=== PATIENT | female | born 2005 | race Caucasian/White ===

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

== ENCOUNTER → 2023-01-13 | Outpatient (CLI) | payer OTHER, SELFPAY ==
[2023-01-16 00:07] LABS: Cortisol, Free 24Ur 144 ug/24 hr (6-42); Cortisol, Urinary Free 72 ug/L (Undefined)
== END | disposition home or self-care (01) ==
LOC: LABSPEC 09:39
PROVIDERS: Referring Provider Internal Medicine Endocrinology, Diabetes & Metabolism; Visit Provider Internal Medicine Endocrinology, Diabetes & Metabolism
DX: E27.9 Disorder of adrenal gland, unspecified (principal)
CPT/HCPCS: 81050; 82530

== ENCOUNTER → 2023-01-16 | Outpatient (CLI) | payer OTHER, SELFPAY ==
[2023-01-17 13:07] LABS: Adrenocorticotropic Hormone 16.7 pg/mL (7.2-63.3)
== END | disposition home or self-care (01) ==
LOC: LAB 12:01
PROVIDERS: Referring Provider Internal Medicine Endocrinology, Diabetes & Metabolism; Visit Provider Internal Medicine Endocrinology, Diabetes & Metabolism
DX: E27.9 Disorder of adrenal gland, unspecified (principal); E88.810 Metabolic syndrome
CPT/HCPCS: 36415; 82024; 82533

== ENCOUNTER → 2023-01-22 | Outpatient (CLI) | payer OTHER, SELFPAY | END | disposition home or self-care (01) | LOC: LAB 07:55 | PROVIDERS: Referring Provider Internal Medicine Endocrinology, Diabetes & Metabolism; Visit Provider Internal Medicine Endocrinology, Diabetes & Metabolism | DX: E88.810 Metabolic syndrome (principal); E27.9 Disorder of adrenal gland, unspecified | CPT/HCPCS: 36415; 82533 ==

== ENCOUNTER 2023-02-20 18:58 | Emergency (ER) | payer OTHER, SELFPAY ==
[2023-02-20 18:59] VITALS: BP 175/86; PULSE 108; RESP 16; TEMP 36.2; O2SAT 98; BMI 46.5
--- NOTE | 2023-02-20 19:02 | RAD_ITS ---
INDICATION: pain EXAMINATION/TECHNIQUE: X-RAY - LEFT XR Knee Complete 4 Views or More 4 VIEWS COMPARISON: No relevant prior comparison study available FINDINGS: SOFT TISSUES: No soft tissue swelling or gas. No radiopaque foreign body. BONES/JOINTS: No acute fracture or subluxation.. Normal alignment. Preservation of the joint space. Tiny tricompartmental marginal osteophytes.. No sclerotic or destructive changes observed. RAD/Knee 4 or More Views IMPRESSION: No fracture or malalignment. Tiny tricompartmental marginal osteophytes, greater than expected for patient age. Electronically Signed: Hernan Bradford MD at 19:28 EST ,
[2023-02-20 22:44] VITALS: PULSE 79; RESP 16; O2SAT 98
--- NOTE | 2023-02-27 15:21 | ED.VIS.LOWEX ---
HPI History of Present Illness Chief Complaint: Lower Extremity Injury Informant: patient Narrative Narrative: Patient presents with left knee pain. Patient has some pain in the left knee. No specific activity started this. But she does have a history of some knee problems. 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 No recent fevers chills. No notable swelling. It occasionally feels like it locks on her and is very stiff. No redness. [facility] Medical History Elevated testosterone level Home Medications medroxyprogesterone 5 mg tablet 5 mg PO DAILY #30 tabs 01/01/23 [Rx Last Taken Unknown] megestrol 40 mg tablet 40 mg PO DAILY #7 tabs 01/01/23 [Rx Last Taken Unknown] norgestimate 0.25 mg-ethinyl estradiol 35 mcg tablet (Sprintec (28)) 1 tab PO DAILY #84 tabs 01/08/23 [Rx Last Taken Unknown] naproxen 500 mg tablet (Naprosyn) 500 mg PO BID PRN pain #20 tabs 02/20/23 [Rx Last Taken Unknown] Allergy/AdvReac Type Severity Reaction Status Date / Time No Known Allergies Allergy Verified 02/20/23 18:58 Family History Grandfather CVA (cerebral vascular accident) Diabetes Liver disease Grandmother Heart disease Surgical History History of ankle surgery Social History Smoking Status: Never smoker alcohol intake: never substance use type: does not use caffeine: Yes what type of physical activity do you participate in: none seatbelt use: always do you feel safe at home: Yes additional social history: 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 She is nontoxic. HEENT overall normal. No sign of trauma. Cardiorespiratory shows easy unlabored breathing and normal saturations at 98% on room air showing no hypoxia. Extremities show that there is really no sign of effusion of the knee. It is not red it is not warm. There is no clinical indication of infection. There is some crepitance with range of motion. But I am not getting any obvious instability. Varus valgus and even a Bryant show no obvious ligamentous laxity. Although range of motion is limited at the extremes there is no sign of significant pain with passive range of motion. MDM MDM MDM Narrative Medical decision making narrative: My independent interpretation of the patient's 4 view x-ray of the knee shows some mild arthritic changes but no sign of acute fracture. No large osteochondral fragment is noted. Final reading is tiny tricompartmental marginal osteophytes greater than expected for patient age. These x-ray findings are likely consistent with her significant heavy use of her knees over the years. I think she is likely having a flare possibly from some mild early arthritis. There is no clinical indication for doing blood work, ESR or joint aspirate. No indication of infection. We will get her started on Naprosyn ice rest they will follow-up she may need further evaluations and possible MRI in the future if it keeps giving her problems or locking. This is a suspicion for meniscal injury. Radiography Diagnostic Testing: Clinical Impression(s) from Imaging Studies Knee X-Ray 02/20/23 19:02 IMPRESSION: No fracture or malalignment. Tiny tricompartmental marginal osteophytes, greater than expected for patient age. Electronically Signed: Hernan Bradford MD at 19:28 EST , Discharge Plan Triage Chief Complaint: Lower Extremity Injury ED Provider: Mickey Neves Dx/Rx/DC Orders Clinical Impression: Left knee pain Instructions: ED Knee Pain of Uncertain Cause Prescriptions: New naproxen [Naprosyn] 500 mg tablet 500 mg PO BID PRN (Reason: pain) Qty: 20 0RF No Action megestrol 40 mg tablet 40 mg PO DAILY Qty: 7 0RF medroxyprogesterone 5 mg tablet 5 mg PO DAILY Qty: 30 12RF Rx Instructions: start taking after finish megace rx norgestimate-ethinyl estradiol [Sprintec (28)] 0.25-35 mg-mcg tablet 1 tab PO DAILY Qty: 84 4RF Stand Alone Forms: ED Work / School Excuse Primary Care Provider: DONALD GEORGES Referrals: DONALD GEORGES [Other] Roberto Rosales MD [Med Staff - Active Staff] - As soon as possible Disposition Disposition: Home, Self Care Discharge Date/Time: 02/20/23 22:45
== END 2023-02-20 22:45 | disposition home or self-care (01) ==
PROVIDERS: Emergency Provider Emergency Medicine; Visit Provider Emergency Medicine
DX: M25.562 Pain in left knee (principal); M19.90 Unspecified osteoarthritis, unspecified site
CPT/HCPCS: 73564; 99282

== ENCOUNTER → 2023-03-07 | Outpatient (CLI) | payer OTHER, SELFPAY ==
[2023-03-07 14:59] LABS: Absolute Lymphocyte Count 2.28 X10^3/uL (0.83-4.51); Absolute Neutrophil Count 4.6 X10^3/uL (2.0-7.7); Basophil# 0.04 X10^3/uL; Basophil% 0.5 % (0-1); Eosinophil# 0.06 X10^3/uL; Eosinophils% 0.8 % (0-5); Hematocrit 41.6 % (37-47); Hemoglobin 13.3 g/dL (12.0-15.0); Lymphocyte # 2.28 X10^3/ul (0.83-4.51); Lymphocyte % 30.7 % (19-41); Mean Corpuscular Hgb 29.2 pg (27.0-32.0); Mean Corpuscular Volume 91.4 fL (81-99); Mean Platelet Vol. 10.3 fl (6.2-12.0); Monocyte# 0.47 X10^3/uL; Monocyte% 6.3 % (0-10); NRBC Flagged by Analyzer 0 % (0-5); Neutrophil # 4.57 X10^3/uL (2.7-7.7); Neutrophil % 61.6 % (47-70); Platelet Count 275 K/mm3 (150-450); RBC Distribution Width CV 13.2 % (11.6-14.6); RBC Distribution Width SD 44.6 fl (35.1-43.9); Red Blood Count 4.55 M/mm3 (4.2-5.4); White Blood Count 7.4 K/mm3 (4.4-11.0)
[2023-03-07 15:04] LABS: Erythrocyte Sedimentation Rate 8 mm/hr (0-30)
[2023-03-07 15:29] LABS: CRP 8.95 mg/L (0.0-3.0); Rheumatoid Factor < 10.0 IU/mL (<15); Uric Acid 4.8 mg/dL (2.6-6.0)
[2023-03-11 12:07] LABS: ANTINUCLEAR ANTIBODIES DIRECT Negative (Negative)
== END | disposition home or self-care (01) ==
LOC: LAB 13:56
PROVIDERS: Referring Provider Student in an Organized Health Care Education/Training Program; Visit Provider Student in an Organized Health Care Education/Training Program
DX: S83.8X2A Sprain of other specified parts of left knee, initial encounter (principal); X58.XXXA Exposure to other specified factors, initial encounter
CPT/HCPCS: 36415; 84550; 85025; 85652; 86038; 86140; 86431

== ENCOUNTER → 2023-04-18 | Outpatient (CLI) | payer OTHER, SELFPAY ==
[2023-04-18 13:52] LABS: AST(SGOT) 13 U/L (15-37); Alanine Aminotransfer ALT/SGPT 32 U/L (13-56); Albumin, Serum 3.8 g/dL (3.2-5.0); Alkaline Phosphatase 70 U/L (45-117); Anion Gap 1 (5-15); BUN 17 mg/dL (7-18); BUN/Creat Ratio 21.4 RATIO (10-20); Calcium,Total 9.5 mg/dL (8.5-10.1); Chloride 108 mmol/L (98-107); Creatinine, Serum 0.79 mg/dL (0.55-1.02); EST Glomerular Filtration Rate 99 mL/min (>60); Est Glom Filt Rate - Afr Amer 120 mL/min (>60); Globulin 3.8 g/dL (2.2-4.2); Glucose 95 mg/dL (74-106); Potassium 3.8 mmol/L (3.5-5.1); Protein, Total 7.6 g/dL (6.4-8.2); Sodium Level 137 mmol/L (136-145)
[2023-04-18 13:53] LABS: Insulin 30.5 mU/L (2.6-37.6); Vitamin D,25 Hydroxy 51.4 ng/mL
--- OUTSIDE RECORDS SUMMARY | 2023-04-18 16:08 | XMS RPT_ITS | CCD ---
Author Name Unknown Address [address] [place] [address] Organization [facility] Care Team Providers Care Signal Operator Technical Name Role Phone Pawa, Pratheep Unavailable Unavailable Pawa, Pratheep Unavailable Unavailable TOMER SOTO Attending Unavailable DONALD GEORGES Primary Care Unavailable Problems Active Problems Problem Classification Problem Date Documented Da te Episodic/Chronic Unclassified (1 source) Unknown / UNK(Unknown) Onset: 09-21-2017 Past or Other Problems Problem Classification Problem Date Documented Da te Episodic/Chronic Unclassified (1 source) RT EAR PAIN Onset: 09-21-2017 Results Test Name Value Interpretation Reference Range Facil ity Encounters Encounter Date Encounter Type Care Provider Facility Start: 11-25-2022 End: 11-26-2022 Emergency department patient visit TOMER SOTO [facility] Start: 09-24-2017 Patient encounter procedure Pratheep Pawa Facility:[facility] Start: 09-21-2017 Patient encounter procedure Pratheep Pawa Facility:[facility] Payers Date Payer Category Payer Self-pay [id number] 2017 Unknown [id number] 2003 Unknown [id number] [id number]. [id number] Unknown [id number] Unknown [id number] Unknown [id number] Summary Purpose Family History No Family History Records FoundNo Family History Records FoundNo Family History Records Found Advance Directives No Advanced Directives Records FoundNo Advanced Directives Records FoundNo Advanced Directives Records Found Additional Source Comments INFORMATION SOURCE (unrecogn ized section and content) DATE CREATED AUTHOR AUTHOR'S HUMA ATEDUARDO 11/15/2021 [facility] Ce nter DATE CREATED AUTHOR AUTHOR'S HUMA ATION 12/02/2022 [facility] FOR RECORDS PERTAINING TO PATIENTS WHO ARE OR HAVE BEEN ENROLLED IN A CHEMICAL DEPENDENCY/SUBSTANCEABUSE PROGRAM, SOME INFORMATION MAY BE OMITTED. This clinical summary was aggregated from multiple sources. Caution should be exercised in using it in the provision of clinical care. This summary normalizes information from multiple sources, and as a consequence, information in this document may materially change the coding, format and clinical context of patient data. In addition, data may be omitted in some cases. CLINICAL DECISIONS SHOULD BE BASED ON THE PRIMARY CLINICAL RECORDS. [employer] provides no warranty or guarantee of the accuracy or completeness of information in this document.
== END | disposition home or self-care (01) ==
LOC: LAB 12:45
PROVIDERS: Referring Provider Internal Medicine Endocrinology, Diabetes & Metabolism; Visit Provider Internal Medicine Endocrinology, Diabetes & Metabolism
DX: E88.810 Metabolic syndrome (principal); E28.2 Polycystic ovarian syndrome
CPT/HCPCS: 36415; 80053; 82306; 83525

== ENCOUNTER → 2023-04-21 | Outpatient (CLI) | payer OTHER, SELFPAY ==
--- OUTSIDE RECORDS SUMMARY | 2023-04-21 10:39 | XMS RPT_ITS | CCD ---
Author Name Unknown Address [address] [place] [address] Organization [facility] Care Team Providers Care Strategy Lead Name Role Phone Pawa, Pratheep Unavailable Unavailable [...] 11-26-2022 Emergency department patient visit TOMER SOTO [facility] Start: 09-24-2017 Patient encounter procedure Pratheep Pawa Facility:[facility] Start: 09-21-2017 Patient encounter procedure Pratheep Pawa Facility:[facility] Payers Date Payer Category Payer Self-pay [id number] 2017 Unknown [id number] 2003 Unknown [id number] [id number]. [id number] Unknown [id number] Unknown [id number] Unknown [id number] Summary Purpose Family History No Family History Records FoundNo Family History Records FoundNo Family History Records Found Advance Directives No Advanced Directives Records FoundNo Advanced Directives Records FoundNo Advanced Directives Records Found Additional Source Comments INFORMATION SOURCE (unrecogn ized section and content) DATE CREATED AUTHOR AUTHOR'S HUMA ATEDUARDO 11/15/2021 [facility] Ce nter DATE CREATED AUTHOR AUTHOR'S HUMA ATION 12/02/2022 [facility] FOR RECORDS PERTAINING TO PATIENTS WHO ARE [...] BE BASED ON THE PRIMARY CLINICAL RECORDS. [employer] provides no warranty or guarantee of the accuracy or completeness of information in this document.
[2023-04-21 14:10] LABS: Creatinine, Serum 0.75 mg/dL (0.55-1.02); EST Glomerular Filtration Rate 106 mL/min (>60); Est Glom Filt Rate - Afr Amer 128 mL/min (>60)
[2023-04-21 14:12] LABS: Creat.Clear Total Volume 1900 mL; Creatinine Clearance 172 ml/min (100-200); Creatinine Serum Creat 0.8 mg/dL (0.6-1.0); Creatinine Urine 97.6 mg/dL (NO RANGE EST.); EST Glomerular Filtration Rate 106 mL/min (>60); Est Glom Filt Rate - Afr Amer 128 mL/min (>60)
[2023-04-24 19:07] LABS: Cortisol, Free 24Ur 97 ug/24 hr (6-42); Cortisol, Urinary Free 51 ug/L (Undefined)
== END | disposition home or self-care (01) ==
DX: E27.9 Disorder of adrenal gland, unspecified (principal)
CPT/HCPCS: 81050; 82530; 82565; 82575

== ENCOUNTER → 2023-05-02 | Outpatient (CLI) | payer OTHER, SELFPAY ==
--- NOTE | 2023-05-02 09:27 | US_ITS ---
STUDY: ULTRASOUND OF THE FEMALE PELVIS - COMPLETE REASON FOR EXAM: Female, 17 years old. pcos LMP: April 01, 2023. TECHNIQUE: Transabdominal TECHNICAL QUALITY: Adequate. COMPARISON: Comparison is made with prior study dated November 29, 2022. FINDINGS: The uterus is anteverted and is tilted to the left side of the pelvis. The uterus measures 9.4 cm x 4.4 cm x 4.4 cm. Normal uterine cervix. The endometrium measures 8.2 mm in thickness, and is heterogeneous (striated). There is no demonstrated endometrial mass. There is no demonstrated myometrial mass. I.U.D. - The patient does not have an I.U.D. The right ovary is visualized. The right ovary measures 4.5 cm x 2.8 cm x 1.8 cm. There is no right ovarian cyst or ovarian mass. There is no visualized right adnexal mass or complex lesion. There is normal arterial and normal venous vascularity. The left ovary is visualized. The left ovary measures 3.5 cm x 2.8 cm x 2.0 cm. There is no left ovarian cyst or ovarian mass. There is no visualized left adnexal mass or complex lesion. There is normal arterial and normal venous vascularity. There is no fluid in the cul-de-sac. The pre void volume of the bladder was 752 ml. US/Pelvic (Non ) IMPRESSION: Normal female pelvis. Electronically Signed: Jesus Manuel Tran MD at 11:30 EST ,
--- OUTSIDE RECORDS SUMMARY | 2023-05-02 09:50 | XMS RPT_ITS | CCD ---
Author Name Unknown Address [address] [place] [address] Organization [facility] Care Team Providers Care Auto Overhauler Name Role Phone Pawa, Pratheep Unavailable Unavailable [...] 11-26-2022 Emergency department patient visit TOMER SOTO [facility] Start: 09-24-2017 Patient encounter procedure Pratheep Pawa Facility:[facility] Start: 09-21-2017 Patient encounter procedure Pratheep Pawa Facility:[facility] Payers Date Payer Category Payer Self-pay [id number] 2017 Unknown [id number] 2003 Unknown [id number] Unknown [id number] Unknown [id number] Unknown [id number] Summary Purpose Family History No Family History Records FoundNo Family History Records FoundNo Family History Records Found Advance Directives No Advanced Directives Records FoundNo Advanced Directives Records FoundNo Advanced Directives Records Found Additional Source Comments INFORMATION SOURCE (unrecogn ized section and content) DATE CREATED AUTHOR AUTHOR'S HUMA ATEDUARDO 11/15/2021 [facility] Ce nter DATE CREATED AUTHOR AUTHOR'S HUMA ATION 12/02/2022 [facility] FOR RECORDS PERTAINING TO PATIENTS WHO [...] BE BASED ON THE PRIMARY CLINICAL RECORDS. [employer] provides no warranty or guarantee of the accuracy or completeness of information in this document.
== END | disposition home or self-care (01) ==
LOC: US 09:26
PROVIDERS: Referring Provider Obstetrics & Gynecology; Visit Provider Obstetrics & Gynecology
DX: E28.2 Polycystic ovarian syndrome (principal)
CPT/HCPCS: 76856

== ENCOUNTER → 2024-05-04 | Outpatient (CLI) | payer OTHER, SELFPAY | END | disposition home or self-care (01) | LOC: LABSPEC 16:24 | PROVIDERS: Referring Provider Nurse Practitioner Women's Health; Visit Provider Nurse Practitioner Women's Health | DX: Z11.3 Encounter for screening for infections with a predominantly sexual mode of transmission (principal) | CPT/HCPCS: 87491; 87591 ==

== ENCOUNTER → 2025-02-24 | Outpatient (CLI) | payer OTHER, SELFPAY ==
[2025-02-28 04:06] LABS: Chlamydia By Nucleic Acid AMP Negative (Negative); Gonococcus By Nucleic Acid AMP Negative (Negative)
== END | disposition home or self-care (01) ==
LOC: LABSPEC 15:21
PROVIDERS: Referring Provider Nurse Practitioner Women's Health; Visit Provider Nurse Practitioner Women's Health
DX: Z12.4 Encounter for screening for malignant neoplasm of cervix (principal); Z11.3 Encounter for screening for infections with a predominantly sexual mode of transmission
CPT/HCPCS: 87491; 87591; 88175; G0145